=== PATIENT | male | born 1975 | race Caucasian/White ===

== ENCOUNTER 2016-12-21 20:52 | Emergency (ER) | payer BC ==
[~2016-12-21] VITALS: Ht 175.3 cm; Wt 79.4 kg
[~2016-12-21 20:52] MED LIST: FLEXERIL10 MG PO; LIDODERM 5% PAT1 PAT TOP; TORADOL10 MG PO
[2016-12-21 21:26] LABS: ABSOLUTE BASOPHIL COUNT 0.1 /CUMM (0.0-0.2); ABSOLUTE EOSINOPHIL COUNT 0.1 /CUMM (0.0-0.7); ABSOLUTE GRANULOCYTE CT 4.1 /CUMM (1.4-6.5); ABSOLUTE LYMPH COUNT 1.6 /CUMM (1.2-3.4); ABSOLUTE MONOCYTE COUNT 0.5 /CUMM (0.10-0.60); BASOPHIL % 0.8 % (0.0-2.0); EOSINOPHIL % 1.9 % (0-5); GRANULOCYTE % 63.8 % (42.2-75.2); HEMATOCRIT 46.1 % (42-52); MEAN CORPUSCULAR HGB CONC 33.1 G/DL (33.0-37.0); MEAN CORPUSCULAR VOLUME 87.7 FL (80.0-94.0); MEAN PLATELET VOLUME 7.1 FL (7.4-10.4); PLATELET COUNT 224 /CUMM (130-400); RBC DISTRIBUTION WIDTH 13.3 % (11.5-14.5); RED BLOOD CELL CT 5.26 /CUMM (4.70-6.10); WHITE BLOOD CELL COUNT 6.4 /CUMM (4.8-10.8)
--- NOTE | 2016-12-21 22:01 | ED GENERAL ADULT ---
History of Present Illness General Chief Complaint: General Adult Stated Complaint: HIGH BP 170/115 AT HOME Source: patient, family Exam Limitations: no limitations Vital Signs & Intake/Output Vital Signs & Intake/Output Vital Signs Date Time Temp Pulse Resp B/P Pulse O2 O2 Flow FiO2 Ox Delivery Rate 12/21 2306 65 18 147/88 97 Room Air 12/21 2225 Room Air 12/21 210 150/100 12/21 2106 97.7 73 18 160/106 Room Air ED Intake and Output 12/22 0000 12/21 1200 Intake Total 0 Output Total Balance 0 Intake, Oral 0 Patient 175 lb Weight Allergies Coded Allergies: acetaminophen (From Percocet) (Intermediate, HIVES 12/22/16) hydrocodone (Intermediate, HIVES 12/22/16) oxycodone (From Percocet) (Intermediate, HIVES 12/22/16) Reconcile Medications CYCLOBENZAPRINE HCL (Flexeril) 10 MG TABLET 1 TAB PO Q8H PRN spasm/pain Avoid operating motor vehicle or heavy machinery Ketorolac Tromethamine (Toradol) 10 MG TAB 1 TAB PO Q6H PRN PAIN/INFLAMMATION RECEIVED A DOSE OF IM TORADOL IN THE EMERGENCY DEPARTMENT. Lidocaine HCl (Lidoderm Patch) 5 % PAT 1 PATCH TOP DAILY PRN PAIN MAY WEAR UP TO 12 HOURS THEN REMOVE FOR 12 HOURS Triage Note: PT TO ED C/O HIGH BP AT HOME 170/115 ON HIS MOTHER'S MACHINE. WAS BIBA TO [facility] S/P [facility] AT [facility] ON THURSDAY. HAD TAKEN MUCINEX FOR "THAT REALLY LONG COLD THAT'S OUT THERE" AND HAD ONE ETOH DRINK. DX DEHYDRATION/VASOVAGAL. WAS DC'D FROM ED. ON THURSDAY FELT "TINGELING IN CHEST" AND SOB SO TOOK HIS BP, WAS 155/106. HAD PLANE RIDE FROM [place] A WEEK AGO. STATES IS A RUNNER "AND I JUST CAN'T BREATH DEEP" FOR THE LAST COUPLE OF DAYS. BP 160/106 AUTO IN TRIAGE. 150/100 MANUALLY. DENIES CHEST PAIN, TINGELING AT THIS TIME Triage Nurses Notes Reviewed? yes Onset: Gradual Duration: day(s):, waxing and waning Timing: recent history Injury Environment: home Severity: moderate No Modifying Factors: none Modifying Factors: Worsens With: other (worse with deep breath). Associated Symptoms: problems breathing. HPI: 41yo gentleman presents with, "not feeling right," for the past week. He notes that he had a viral type syndrome 1 week ago, took cold medicine. 4 days ago, he had a syncopal episode. "I went out, had a drink.... hadn't eaten much that day... I got dizzy... passed out... [facility]kg... They said everything was fine and sent me home." He notes that he feels "not right." He took his blood pressure tonight which was 170's/100's and then again 160's/100's. He notes slight problems with taking a deep breath... No chest pain, fever, chills, cough. He is otherwise well. Past History Travel History Traveled to [place] past 21 day No Medical History Any Pertinent Medical History? see below for history Surgical History Surgical History: none Psychosocial History What is your primary language Tajik Tobacco Use: Never used ETOH Use: occasional use Illicit Drug Use: denies illicit drug use Family History Hx Contributory? No Review of Systems Review of Systems Constitutional: Reports: no symptoms. EENTM: Reports: no symptoms. Respiratory: Reports: no symptoms. Cardiovascular: Reports: no symptoms. GI: Reports: no symptoms. Genitourinary: Reports: no symptoms. Musculoskeletal: Reports: no symptoms. Skin: Reports: no symptoms. Neurological/Psychological: Reports: no symptoms. Hematologic/Endocrine: Reports: no symptoms. Immunologic/Allergic: Reports: no symptoms. All Other Systems: Reviewed and Negative Physical Exam Physical Exam General Appearance: well developed/nourished, mild distress Head: atraumatic, normal appearance Eyes: Bilateral: normal appearance, PERRL, EOMI. Ears, Nose, Throat: normal pharynx, normal ENT inspection, hearing grossly normal Neck: normal inspection, supple, full range of motion Respiratory: normal breath sounds, chest non-tender, no respiratory distress, quiet respiration, lungs clear Cardiovascular: regular rate/rhythm Gastrointestinal: normal bowel sounds, soft, non-tender, no organomegaly Back: normal inspection, normal range of motion Extremities: normal inspection, normal capillary refill, normal range of motion, no edema Neurologic/Psych: no motor/sensory deficits, awake, alert, oriented x 3 Skin: intact, normal color, warm/dry Core Measures ACS in differential dx? No CVA/TIA Diagnosis: No Severe Sepsis Present: No Septic Shock Present: No Progress Differential Diagnoses I considered the following diagnoses in my evaluation of the patient: PE vs contusion vs viral sydrome... hypertension vs other. Plan of Care: Orders Procedure Date/time Status TROPONIN LEVEL 12/21 2112 Complete D-DIMER 12/21 2112 Complete COMPREHENSIVE METABOLIC PANEL 12/21 2112 Complete CBC WITHOUT DIFFERENTIAL 12/21 2112 Complete EKG 12/21 2112 Active Laboratory Tests 12/21/162117: Anion Gap 9, Estimated GFR > 60, BUN/Creatinine Ratio 22.0, Glucose 93, Calcium 9.4, Total Bilirubin 0.7, AST 20, ALT 25, Alkaline Phosphatase 75, Troponin I < 0.01, Total Protein 7.6, Albumin 4.3, Globulin 3.3, Albumin/Globulin Ratio 1.3, D-Dimer 573 H, CBC w Diff NO MAN DIFF REQ, RBC 5.26, MCV 87.7, MCH 29.0, RDW 13.3, MPV 7.1 L, Gran % 63.8, Lymphocytes % 25.3, Monocytes % 8.2, Eosinophils % 1.9, Basophils % 0.8, Absolute Granulocytes 4.1, Absolute Lymphocytes 1.6, Absolute Monocytes 0.5, Absolute Eosinophils 0.1, Absolute Basophils 0.1, PUBS MCHC 33.1 Diagnostic Imaging: Viewed by Me: CT Scan. Discussed w/RAD: CT Scan. Radiology Impression: ct angio... no PE... benign... full report below. Initial ED EKG: normal axis, normal intervals, normal p-waves, normal QRS complex, normal sinus rhythm Comments: PATIENT: MODESTA MIRELES PRESENT AGE: 41 PATIENT ACCOUNT NO: [id number] : 73 LOCATION: [facility] ORDERING PHYSICIAN: KAREN LUJAN MD SERVICE DATE: 12/21/16 EXAM TYPE: CAT - CTA CHEST-PULMONARY EMBOLISM EXAMINATION: CT ANGIOGRAM OF THE CHEST WITH CONTRAST (CT PULMONARY ANGIOGRAM FOR PE) CLINICAL INFORMATION: Shortness of breath and positive d-dimer. COMPARISON: CXR from 07/14/2011. TECHNIQUE: Prior to contrast administration, noncontrast localization images were obtained. Subsequently, multidetector volumetric imaging was performed from the thoracic inlet to below the diaphragms following the administration of 125 mL of Optiray 350 intravenous contrast. No contrast reaction reported. Sagittal, coronal, and MIP oblique sagittal reformatted images were obtained on the CT workstation, uploaded to PACS, and reviewed. Total exam dose-length product 449 mGy-cm FINDINGS: QUALITY OF STUDY/CONTRAST BOLUS: Satisfactory. PULMONARY ARTERIES: Pulmonary arteries are normal in caliber. No embolic filling defects in the main, lobar or segmental vessels. THORACIC AORTA: Thoracic aorta is normal in caliber. No intramural hematoma, aneurysm or dissection. LUNGS AND PLEURA: Trachea and central airways are widely patent and normal in caliber. No interstitial disease, focal consolidation, pleural effusion or pneumothorax. Small, 2 mm nodule is present within the left lower lobe (image 258, series 2). No suspicious lung nodule or mass. MEDIASTINUM: Cardiac chambers are normal in caliber. No pericardial effusion. No evidence of septal bowing or right heart strain. The esophagus is unremarkable. The visualized portion of the thyroid gland is normal. LYMPHATICS: No pathologic sized axillary, hilar or mediastinal lymph nodes. UPPER ABDOMEN: Unremarkable. OSSEOUS STRUCTURES: No acute or suspicious osseous abnormality. IMPRESSION: No acute imaging abnormalities within the chest. No evidence of pulmonary embolism. DICTATED BY: SALMA REBOLLEDO MD DATE/TIME DICTATED:12/21/162243 DIRECTOR FIELD SERVICES:[employer] DATE/TIME TRANSCRIBED:12/21/162243 CONFIDENTIAL, DO NOT COPY WITHOUT APPROPRIATE AUTHORIZATION. <Electronically signed in Other Vendor System> SIGNED BY: SALMA REBOLLEDO MD 12/21/16 4597 Departure Departure Disposition: HOME OR SELF CARE Condition: Stable Clinical Impression Primary Impression: Elevated blood pressure reading Referrals: INDU ADAMS,SARIAH Lou (PCP/Family) Departure Forms: Customer Survey General Discharge Information Comments Discussed at length with family. His workup is benign including a negative troponin and a negative CT angiogram. His blood pressure decreased without any intervention. I suggested that he stay for second troponin. He declines, stating that he feels well. She will follow-up with his doctor later on today. Critical Care Note Critical Care Note Critical Care Time: non-applicable
--- NOTE | 2016-12-21 22:52 | CT SCAN REPORT ---
EXAMINATION: CT ANGIOGRAM OF THE CHEST WITH CONTRAST (CT PULMONARY ANGIOGRAM FOR PE) CLINICAL INFORMATION: Shortness of breath and positive d-dimer. COMPARISON: CXR from 07/14/2011. TECHNIQUE: Prior to contrast administration, noncontrast localization images were obtained. Subsequently, multidetector volumetric imaging was performed from the thoracic inlet to below the diaphragms following the administration of 125 mL of Optiray 350 intravenous contrast. No contrast reaction reported. Sagittal, coronal, and MIP oblique sagittal reformatted images were obtained on the CT workstation, uploaded to PACS, and reviewed. Total exam dose-length product 449 mGy-cm FINDINGS: QUALITY OF STUDY/CONTRAST BOLUS: Satisfactory. PULMONARY ARTERIES: Pulmonary arteries are normal in caliber. No embolic filling defects in the main, lobar or segmental vessels. THORACIC AORTA: Thoracic aorta is normal in caliber. No intramural hematoma, aneurysm or dissection. LUNGS AND PLEURA: Trachea and central airways are widely patent and normal in caliber. No interstitial disease, focal consolidation, pleural effusion or pneumothorax. Small, 2 mm nodule is present within the left lower lobe (image 258, series 2). No suspicious lung nodule or mass. MEDIASTINUM: Cardiac chambers are normal in caliber. No pericardial effusion. No evidence of septal bowing or right heart strain. The esophagus is unremarkable. The visualized portion of the thyroid gland is normal. LYMPHATICS: No pathologic sized axillary, hilar or mediastinal lymph nodes. UPPER ABDOMEN: Unremarkable. OSSEOUS STRUCTURES: No acute or suspicious osseous abnormality. IMPRESSION: No acute imaging abnormalities within the chest. No evidence of pulmonary embolism.
[2016-12-21 23:06] VITALS: BP 147/88
== END 2016-12-21 23:59 ==
LOC: ERH 20:52
PROVIDERS: Pediatrics
DX: R03.0 Elevated blood-pressure reading, without diagnosis of hypertension (principal); R42 Dizziness and giddiness
CPT/HCPCS: 93005; 93010